=== PATIENT | male | born 1950 ===

== ENCOUNTER 2018-11-14 06:47 | Outpatient (CLI) | payer OTHER | END 2018-11-14 07:27 | disposition home or self-care (01) | LOC: LAB 06:47 | DX: D51.0 Vitamin B12 deficiency anemia due to intrinsic factor deficiency (principal); D68.8 Other specified coagulation defects; D64.89 Other specified anemias; E11.65 Type 2 diabetes mellitus with hyperglycemia; D57.3 Sickle-cell trait ==

== ENCOUNTER 2020-12-09 07:58 | Outpatient (CLI) | payer OTHER | END 2020-12-09 08:07 | disposition home or self-care (01) | LOC: TOM 07:58 | PROVIDERS: ATTEND Urology | DX: N28.1 Cyst of kidney, acquired (principal); N20.0 Calculus of kidney; K59.09 Other constipation; K57.90 Diverticulosis of intestine, part unspecified, without perforation or abscess without bleeding ==

== ENCOUNTER → 2022-02-04 | Emergency (ER) | payer OTHER ==
[~2022-02-04] VITALS: Ht 165.1 cm; Wt 68.9 kg
== END | disposition home or self-care (01) ==
LOC: ER 17:49 → EMR PED 17:53 → ER 17:53
DX: U07.1 COVID-19 (principal)